=== PATIENT | female | born 1960 | race Caucasian/White ===

== ENCOUNTER → 2016-08-04 | Outpatient (CLI) | payer OTHER ==
--- NOTE | 2016-08-04 17:50 | DX ---
Chest, PA and lateral. History: Cough Findings: Heart size is within normal limits. Pulmonary vascularity is normal. The lungs are clear. No evidence of pleural effusion or pneumothorax. Minimal degenerative change is seen in the thoracic spine. Surgical clips upper abdomen. Impression: No evidence of acute cardiopulmonary abnormality.
== END ==
LOC: FIMAGING 11:30
PROVIDERS: ATTEND Family Medicine
DX: R05 Cough (principal); R13.10 Dysphagia, unspecified

== ENCOUNTER → 2016-09-01 | Outpatient (CLI) | payer OTHER | LOC: FIMAGING 09:16 | PROVIDERS: ATTEND Family Medicine | DX: K44.9 Diaphragmatic hernia without obstruction or gangrene (principal); K22.2 Esophageal obstruction; K21.9 Gastro-esophageal reflux disease without esophagitis; R13.10 Dysphagia, unspecified ==

== ENCOUNTER 2016-10-07 15:05 | Emergency (ER) | payer OTHER ==
[2016-10-07 15:41] VITALS: BP 126/62; PULSE 81; RESP 18; TEMP 97.9; O2SAT 96
--- NOTE | 2016-10-07 16:40 | UCPHY ---
H & P Patient Type: Established HPI/ROS: CHIEF COMPLAINT: Skin biopsy, possible infection HISTORY OF PRESENT ILLNESS: Patient had a skin biopsy done on left anterior chest near the shoulder on the of this month. It was for possible melanoma. Following day she noted some pain and redness around the area. No fever or chills. She said she felt ill yesterday but this resolved spontaneously. Minimal pain in the left shoulder. No radiating pain. No numbness or tingling. No bleeding. The wound has been covered with bacitracin and Band-Aid. Minimal in a pain with this at this time. No improvement with ibuprofen. No other associated complaints or modifying factors. REVIEW OF SYSTEMS: Ten systems reviewed and are negative unless otherwise noted in the HPI PERTINENT MEDICAL HISTORY: Previous melanoma EXAMINATION General Appearance: Alert, no distress Head: normocephalic, atraumatic Eyes: Pupils equal and round, no conjunctival pallor or injection ENT, Mouth: Mucous membranes moist Neck: Normal inspection Respiratory: No wheezing. No distress. Neurological: A&O, nonfocal, normal gait Skin: Warm and dry. No rash. Left anterior chest: There is a 1 cm oval shaped wound consistent with skin biopsy. There is minimal surrounding erythema. No purulence. No fluctuance. No induration. No surrounding cellulitis. Extremities: Nontender, no pedal edema Psychiatric: Mood and affect normal DIFFERENTIAL DIAGNOSES: Including but not limited to skin biopsy, secondary skin infection, erythema from biopsy MDM: 4:37 p.m. Recent skin biopsy on the left anterior chest near the shoulder. There is some very mild surrounding erythema of the wound margins. There is no cellulitic appearance. No abscess. She is well appearing with stable vital signs. I will place her on Keflex for prophylaxis empirically. She is to follow up with the surgeon on Sunday and her primary care physician. She is comfortable with this plan and discharged home stable condition. SUPERVISION: This patient was independently evaluated without direct examination by the attending physician. Case was discussed with attending physician. Smoking Status: Never smoked Constitutional: Initial Vital Signs Temperature (C) 97.9 F 10/07/16 15:38 Heart Rate 81 10/07/16 15:38 Respiratory Rate 18 10/07/16 15:38 Blood Pressure 126/62 H 10/07/16 15:38 O2 Sat (%) 96 10/07/16 15:38 O2 Delivery Mode Room Air Allergies/Adverse Reactions: erythromycin base [Erythromycin Base] Allergy (Intermediate, Verified 02/23/16 18:26) BLISTERS IN MOUTH levofloxacin [From Levaquin] Allergy (Intermediate, Verified 02/23/16 18:27) ITCHING / BLISTERS AT IV SITE Sulfa (Sulfonamide Antibiotics) Allergy (Intermediate, Verified 02/23/16 18:27) BLISTERS IN MOUTH AND THROAT Home Medications: Medication Instructions Recorded Cephalexin [Keflex (*)] 500 mg PO TID #30 cap 10/07/16 MDM/Departure - Depart Disposition: Home, Routine, Self-Care Clinical Impression: Skin infection, S/P skin biopsy Condition: Good Instructions: Cellulitis (ED) Additional Instructions: Keflex as prescribed. Follow up with primary care physician for further care. Return to the ER or Urgent Care for worsening symptoms. Prescriptions: Cephalexin [Keflex (*)] 500 mg PO TID #30 cap Referrals: Eusebia Medley MD [Primary Care Provider] - As per Instructions - PQRS PQRS Measurement: Not applicable
== END 2016-10-07 16:46 | disposition home or self-care (01) ==
LOC: CED 15:05
DX: L08.9 Local infection of the skin and subcutaneous tissue, unspecified (principal); Z85.820 Personal history of malignant melanoma of skin
CPT/HCPCS: 99214-PO; G0463-PO

== ENCOUNTER 2016-10-17 18:10 | Emergency (ER) | payer OTHER ==
[2016-10-17 18:15] VITALS: BP 133/78; RESP 18; TEMP 98; O2SAT 96
--- NOTE | 2016-10-17 18:29 | UCPHY ---
H & P Patient Type: Established Chief Complaint Nursing Narrative: c/o Cough/ URI x 1 wk HPI/ROS: HPI CHIEF COMPLAINT: Cough HISTORY OF PRESENT ILLNESS: This patient very pleasant 48-year-old female significant past medical history for esophageal tear, heart failure, staph infection, presents to urgent care with 4 days of progressively worsening bronchitic cough with no sputum production. No fever. Does have chills. No chest pain. She states she can't stop coughing over the past 3 days. Denies wheezing, fever, vomiting has had diarrhea. She has been recently on Keflex for skin biopsy infected site. Denies chest pain or significant shortness of breath. No dyspnea on exertion. No leg swelling. denies history of PE DVT Past Medical History: Esophageal tear, heart failure, staph infection Past Surgical History: No recent surgical history Social History: Denies daily use of drugs alcohol tobacco products Family History: Noncontributory ROS REVIEW OF SYSTEMS: A comprehensive 10 point review of systems is otherwise negative aside from elements mentioned in the history of present illness. Exam Constitutional triage nursing summary reviewed, vital signs reviewed, awake/ alert. Eyes normal conjunctivae and sclera, EOMI, PERRLA. HENT normal inspection, atraumatic, moist mucus membranes, no epistaxis, neck supple/ no meningismus, no raccoon eyes. Respiratory decreased breath sounds bilaterally, bronchitic sounding cough no respiratory distress, no wheezing. Cardiovascular rate normal, regular rhythm, no murmur, no edema, distal pulses normal. Gastrointestinal soft, non-tender, no rebound, no guarding, normal bowel sounds, no distension, no pulsatile mass. Genitourinary no CVA tenderness. Musculoskeletal no midline vertebral tenderness, full range of motion, no calf swelling, no tenderness of extremities, no meningismus, good pulses, neurovascularly intact. Skin pink, warm, & dry, no rash, skin atraumatic. Neurologic awake, alert and oriented x 3, AAOx3, moves all 4 extremities equally, motor intact, sensory intact, CN II-XII intact, normal cerebellar, normal vision, normal speech. Psychiatric normal mood/affect. Heme/Lymph/Immune no lymphadenopathy. Differential Diagnosis: includes but is not limited to in a particular order, upper respiratory tract infection, viral pneumonia, bacterial pneumonia, pneumothorax, bronchitis, doubt CHF Medical Decision Making: plan for this patient two view chest x-ray, DuoNeb breathing treatment. Cough medicine prednisone. Re-eval Re-evaluation: 190: Re-evaluation this time patient feeling much better after DuoNeb breathing treatment. Chest x-ray reviewed shows no acute focal pneumonia. Linear atelectasis seen. Patient clinically here bronchitis. No hypoxia no fever. Prescription given for guaifenesin, albuterol, prednisone, doxycycline. She is allergic to sulfa antibiotics, Levaquin, erythromycin. She understands to drink lots of fluids return to the urgent care or emergency room if there is any worsening symptoms. Source: Patient - Personal History Tetanus Vaccine Date: 2007 - Medical/Surgical History Hx Asthma: No Hx Chronic Respiratory Disease: No Hx Diabetes: No Hx Cardiac Disease: No Hx Renal Disease: No Hx Cirrhosis: No Hx Alcoholism: No Hx HIV/AIDS: No Hx Splenectomy or Spleen Trauma: No Other PMH: denies - Family History Significant Family History: No pertinent family hx - Social History Smoking Status: Never smoked Constitutional: Initial Vital Signs Temperature (C) 36.6 C 10/17/16 18:14 Heart Rate 74 10/17/16 18:14 Respiratory Rate 18 10/17/16 18:14 Blood Pressure 133/78 H 10/17/16 18:14 O2 Sat (%) 96 10/17/16 18:14 O2 Delivery Mode Room Air Allergies/Adverse Reactions: erythromycin base [Erythromycin Base] Allergy (Intermediate, Verified 02/23/16 18:26) BLISTERS IN MOUTH levofloxacin [From Levaquin] Allergy (Intermediate, Verified 02/23/16 18:27) ITCHING / BLISTERS AT IV SITE Sulfa (Sulfonamide Antibiotics) Allergy (Intermediate, Verified 02/23/16 18:27) BLISTERS IN MOUTH AND THROAT Home Medications: Medication Instructions Recorded Cephalexin [Keflex (*)] 500 mg PO TID #30 cap 10/07/16 Albuterol [Proventil Inhaler HFA 1 - 2 puffs IH Q4H #1 mdi 10/17/16 (*)] Hydrocodone/APAP 5/325 [Hammond 1 - 2 tab PO Q4H PRN #10 tab 10/17/16 5/325] predniSONE 60 mg PO DAILY #15 tab 10/17/16 Medical Decision Making - Diagnostics Imaging: Imaging Impressions Chest X-Ray 10/17/16 18:33 Impression: 1. Band of subsegmental atelectasis left base similar to the prior study. No active cardiopulmonary disease seen. - Data Points Medications Given: Discontinued Medications Albuterol/Ipratropium (Duoneb) 3 ml IH EDNOW ONE Stop: 10/17/16 18:34 Last Admin: 10/17/16 18:54 Dose: 3 ml Guaifenesin (Mucinex) 600 mg PO EDNOW ONE Stop: 10/17/16 18:37 Last Admin: 10/17/16 18:53 Dose: Not Given Prednisone (Prednisone) 60 mg PO EDNOW ONE Stop: 10/17/16 18:37 Last Admin: 10/17/16 18:55 Dose: 60 mg Departure - Departure Disposition: Home, Routine, Self-Care Clinical Impression: Cough, Bronchitis Condition: Good Instructions: Acute Bronchitis (ED), Cold Symptoms (ED), Acute Cough (ED) Additional Instructions: 1. Make sure to drink lots of fluids 2. return to the Urgent Care emergency review any worsening symptoms questions or concerns. Prescriptions: Albuterol [Proventil Inhaler HFA (*)] 1 - 2 puffs IH Q4H #1 mdi Hydrocodone/APAP 5/325 [Hammond 5/325] 1 - 2 tab PO Q4H PRN #10 tab PRN Reason: Pain, Moderate predniSONE 60 mg PO DAILY #15 tab - PQRS PQRS Measurement: n/a
[2016-10-17] MEDS ORDERED: IPRATROPIUM/ALBUTEROL 3 ML DEYVIAL IH ONE (18:33)
[2016-10-17] MEDS ORDERED: predniSONE 20 MG TAB PO ONE (18:36)
[2016-10-17] MEDS ORDERED: guaiFENesin 600 MG TAB.ER PO ONE (18:36)
[2016-10-17] MEDS ORDERED: guaiFENesin/CODEINE PHOS 10 ML UDCUP PO ONE (18:56)
[2016-10-17] MEDS ORDERED: DOXYCYCLINE 100 MG PREPACK#2 BTL TAKEHOME ONE (18:59)
[2016-10-17] MEDS ORDERED: DOXYCYCLINE HYCLATE 100 MG CAP/TAB PO ONE (19:00)
[2016-10-17 19:43] VITALS: PULSE 85
== END 2016-10-17 19:21 | disposition home or self-care (01) ==
LOC: CED 18:10
DX: J20.9 Acute bronchitis, unspecified (principal); Z86.79 Personal history of other diseases of the circulatory system
CPT/HCPCS: 71020-PO; 99214-PO; G0463-PO

== ENCOUNTER 2017-05-05 19:46 | Emergency (ER) | payer OTHER ==
[2017-05-05 19:58] VITALS: RESP 18
--- NOTE | 2017-05-05 21:48 | EDPHY ---
H & P Stated Complaint: Double vision for a week, worse today. Time Seen by Provider: 05/05/17 20:12 HPI/ROS: Chief Complaint: Double vision HPI: 57-year-old woman presenting with complaints of intermittent double vision for the last week or 2. Patient states that today the double vision has been persistent. She is described as double vision in the vertical plane with obvious appearing on top of 1 another. States when it has been intermittent you sleep has been worse in the evenings. Has had some mild left bilateral retro-orbital headache associated with this. Today's had double vision all day. No nausea or vomiting. No numbness or weakness. Is ambulating without difficulty. No dizziness. 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 She has also been having some tinnitus for the last several months. ROS: 10 point Review of Systems is negative except as noted in the HPI. PMH: GERD, Achilles tendon injury, dermoid tumors the spine 2011 in 2014 Social History: No smoking, occasional alcohol, no recreational drug use Family History: non-contributory Physical Exam: Gen: Awake, Alert, No Distress HEENT: Nose: no rhinorrhea Eyes: Pupils equal round reactive light accommodation, extraocular movements are intact. She has diplopia reported at 4 feet distance and beyond. Diplopia resolves with near vision. Diplopia also resolves with looking up and looking down. Is worse when she looks straight ahead. There is no horizontal diplopia Mouth: Moist mucosa Neck: Supple, no JVD Chest: nontender, lungs clear to auscultation Heart: S1, S2 normal, no murmur Abd: Soft, non-tender, no guarding Back: no CVA tenderness, no midline tenderness Ext: no edema, non-tender Skin: no rash Neuro: CN II-XII intact, Sensation grossly intact, Strength 5/5 in bilateral upper and lower extremities, normal finger-nose, normal heel-andrade - Personal History Current Tetanus/Diphtheria Vaccine: No Current Tetanus Diphtheria and Acellular Pertussis (TDAP): No Tetanus Vaccine Date: 2007 - Medical/Surgical History Hx Asthma: No Hx Chronic Respiratory Disease: No Hx Diabetes: No Hx Cardiac Disease: No Hx Renal Disease: No Hx Cirrhosis: No Hx Alcoholism: No Hx HIV/AIDS: No Hx Splenectomy or Spleen Trauma: No Other PMH: Hysterectomy, Appy, Cholecystectomy, Desmoid spinal tumors x 2, 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 - Social History Smoking Status: Never smoked Constitutional: Initial Vital Signs Temperature (C) 36.5 C 05/05/17 19:55 Heart Rate 71 05/05/17 19:55 Respiratory Rate 18 05/05/17 19:55 O2 Sat (%) 94 05/05/17 19:55 O2 Delivery Mode Room Air Allergies/Adverse Reactions: erythromycin base [Erythromycin Base] Allergy (Intermediate, Verified 05/05/17 19:58) BLISTERS IN MOUTH levofloxacin [From Levaquin] Allergy (Intermediate, Verified 05/05/17 19:58) ITCHING / BLISTERS AT IV SITE Sulfa (Sulfonamide Antibiotics) Allergy (Intermediate, Verified 05/05/17 19:58) BLISTERS IN MOUTH AND THROAT Home Medications: Medication Instructions Recorded NK [No Known Home Meds] 05/05/17 Medical Decision Making - Diagnostics Imaging Results: Imaging Impressions Brain MRI 05/05/17 20:40 Impression: 1. Rare subcortical and deep punctate white matter hyperintensities, which are nonspecific and may represent sequela of chronic microvascular ischemic gliosis , or old posttraumatic or postinflammatory changes. 2. There is no acute or subacute infarction. Findings were discussed with Parmjit Marcano MD at 22:15, on 05/05/2017. Imaging: Discussed imaging studies w/ speech and language specialist Radiologist ED Course/Re-evaluation: MRI of the brain does not reveal any cause for her diplopia. She has full extraocular movements of bilateral eyes. Visual acuity is intact. No evidence of acute stroke or MS plaques. Will refer her for outpatient with Neurology. She will return for any new neurologic symptoms or complaints. She is not having progressive weakness. No symptoms suggestive of Guillain-Rosharon. Will also refer her to Ophthalmology Departure - Departure Disposition: Home, Routine, Self-Care Clinical Impression: Diplopia Condition: Good Instructions: Diplopia (ED) Additional Instructions: Return to the emergency department for new numbness or weakness. Follow up with Neurology and Ophthalmology, call Sunday for next available appointment. Referrals: Eusebia Medley MD [Primary Care Provider] - As per Instructions Hemant Peterson MD [Medical Doctor] - As per Instructions Hollis Zafar MD [Medical Doctor] - As per Instructions
[2017-05-05 22:14] VITALS: BP 123/69; PULSE 64; TEMP 97.5; O2SAT 95
== END 2017-05-05 22:40 | disposition home or self-care (01) ==
DX: H53.2 Diplopia (principal)

== ENCOUNTER → 2017-05-10 | Outpatient (CLI) | payer OTHER ==
[~2017-05-10] MED LIST: IOPAMIDOL (ISOVUE 370) 100 ML BTL IV ONE
== END ==
LOC: FIMAGING 14:00
PROVIDERS: ATTEND Physician Assistant Medical
DX: H53.2 Diplopia (principal); R42 Dizziness and giddiness
CPT/HCPCS: Q9967

== ENCOUNTER → 2017-05-31 | Outpatient (CLI) | payer OTHER | LOC: FIMAGING 12:06 | PROVIDERS: ATTEND Family Medicine | DX: Z12.31 Encounter for screening mammogram for malignant neoplasm of breast (principal); Z80.3 Family history of malignant neoplasm of breast; Z98.82 Breast implant status | CPT/HCPCS: G0202 ==

== ENCOUNTER → 2018-04-17 | Outpatient (CLI) | payer OTHER ==
[~2018-04-17] MED LIST changes: +GADOBUTROL 10 ML VIAL IVP ONE; -IOPAMIDOL (ISOVUE 370) 100 ML BTL IV ONE
== END ==
LOC: FIMAGING 10:41
PROVIDERS: ATTEND Family Medicine
DX: M51.36 Other intervertebral disc degeneration, lumbar region (principal); D75.81 Myelofibrosis; G95.9 Disease of spinal cord, unspecified; R26.9 Unspecified abnormalities of gait and mobility; R32 Unspecified urinary incontinence
CPT/HCPCS: A9585

== ENCOUNTER → 2018-04-25 | Outpatient (CLI) | payer OTHER | LOC: FIMAGING 09:58 | PROVIDERS: ATTEND Physician Assistant Surgical | DX: M50.321 Other cervical disc degeneration at C4-C5 level (principal); M48.02 Spinal stenosis, cervical region ==

== ENCOUNTER 2018-04-27 05:14 | Observation (INO) | payer OTHER ==
[2018-04-27] MEDS ORDERED: NS 1,000 ML IV ONE (05:43)
--- NOTE | 2018-04-27 05:44 | EDPHY ---
H & P Stated Complaint: right side CP and SOB Time Seen by Provider: 04/27/18 05:44 HPI/ROS: HPI CHIEF COMPLAINT: Right-sided sharp stabbing pleuritic pain. HISTORY OF PRESENT ILLNESS: 58-year-old female, denies any significant medical history, presents emergency room with right sided pleuritic pain. Patient denies any trauma. Patient states this started around 10:00 p.m. Last night. It is now 6:00 a.m.. The pain is worse. Worse when she takes deep breath in. Rather persistent. Denies any abdominal pain. Pain is located right lower lateral lung. Pain is now located right lateral lung sharp stabbing pleuritic in nature. Past Medical History: History of coronary vaso spasm, poor circulation left leg. Past Surgical History: Tumor removed from spinal cord. Cholecystectomy. Social History: Denies drugs alcohol tobacco. Family History: Noncontributory ROS REVIEW OF SYSTEMS: 10 Systems were reviewed and negative with the exception of the elements mentioned in the history of present illness. Exam Constitutional nontoxic no acute distress triage nursing summary reviewed, vital signs reviewed, awake/alert. Eyes normal conjunctivae and sclera, EOMI, PERRLA. HENT normal inspection, atraumatic, moist mucus membranes, no epistaxis, neck supple/ no meningismus, no raccoon eyes. Respiratory clear to auscultation bilaterally, normal breath sounds, no respiratory distress, no wheezing. Cardiovascular rate normal, regular rhythm, no murmur, no edema, distal pulses normal. Gastrointestinal soft, non-tender, no rebound, no guarding, normal bowel sounds, no distension, no pulsatile mass. Genitourinary no CVA tenderness. Musculoskeletal no midline vertebral tenderness, full range of motion, no calf swelling, no tenderness of extremities, no meningismus, good pulses, neurovascularly intact. Skin pink, warm, & dry, no rash, skin atraumatic. Neurologic awake, alert and oriented x 3, AAOx3, moves all 4 extremities equally, motor intact, sensory intact, CN II-XII intact, normal cerebellar, normal vision, normal speech. Psychiatric normal mood/affect. Heme/Lymph/Immune no lymphadenopathy. Differential diagnosis includes but is not limited to: ACS, atypical chest pain , pneumothorax, pneumonia, pulmonary embolism, aortic dissection, congestive heart failure, tumor, musculoskeletal pain, esophageal pain, GERD, peptic ulcer disease, pancreatitis Medical Decision Making: Plan for this patient IV establishment IV fluid bolus , chest x-ray to rule out pneumothorax, EKG, troponin,electrolytes. Re- evaluate. Additionally patient will have a CT angiogram to the significant right-sided pleuritic pain. Re-evaluation: EKG interpretation by me on record in [facility] system. Impression normal sinus rhythm rate of 67 without any signs of acute ischemia no ST elevation or ST depression no T-wave abnormalities. No prolonged intervals. CT scan angiogram of the chest for right-sided severe pleuritic pain is negative for pulmonary embolism or pneumothorax or infiltrate. Called to me by Dr. Nevarez. Patient's lab work reviewed. Negative troponin. Patient's EKG is nonischemic. 0748: Patient re-evaluate this time she still having right-sided pleuritic pain. She received Dilaudid, Toradol. Given the abnormal thickening of the esophagus on the CT scan will give her GI cocktail to see if this improves her pain. She does not have a gallbladder. Plan for hospital admission for ongoing right-sided pleuritic pain. Unexplained at this time. Blood work reviewed. Negative troponin. CT scan reviewed. EKG shows no acute ischemia Plan for admission for right-sided severe pleuritic pain. Plan will be for admission for ongoing right-sided pleuritic pain. Updated the hospitalist service about her abnormal CT scan findings of the distal esophagus. This could be the cause of her pain. Plan for admission observation today. Accepted by hospitalist service Dr. Rowe for Dr. Gardner. Patient agrees on admission. Source: Patient - Personal History Current Tetanus/Diphtheria Vaccine: Yes Current Tetanus Diphtheria and Acellular Pertussis (TDAP): Yes Tetanus Vaccine Date: 2007 - Medical/Surgical History Hx Asthma: No Hx Chronic Respiratory Disease: No Hx Diabetes: No Hx Cardiac Disease: No Hx Renal Disease: No Hx Cirrhosis: No Hx Alcoholism: No Hx HIV/AIDS: No Hx Splenectomy or Spleen Trauma: No Other PMH: Hysterectomy, Appy, Cholecystectomy, Desmoid spinal tumors x 2, 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 - Social History Smoking Status: Never smoked Constitutional: Initial Vital Signs Temperature (C) 36.4 C 04/27/18 05:15 Heart Rate 71 04/27/18 05:15 Respiratory Rate 16 04/27/18 05:15 Blood Pressure 126/65 H 04/27/18 05:15 O2 Sat (%) 95 04/27/18 05:15 O2 Delivery Mode Room Air Allergies/Adverse Reactions: erythromycin base [Erythromycin Base] Allergy (Intermediate, Verified 04/27/18 05:19) BLISTERS IN MOUTH levofloxacin [From Levaquin] Allergy (Intermediate, Verified 04/27/18 05:19) ITCHING / BLISTERS AT IV SITE Sulfa (Sulfonamide Antibiotics) Allergy (Intermediate, Verified 04/27/18 05:19) BLISTERS IN MOUTH AND THROAT Home Medications: Medication Instructions Recorded Cholecalciferol Vit D3 [Vitamin D3 2,000 units PO DAILY 04/27/18 (*)] Herbals/Supplements -Info Only 1 ea PO DAILY 04/27/18 Methocarbamol [Robaxin 500 mg (*)] 1,000 mg PO QID PRN #20 tab 04/28/18 Pantoprazole Sodium [Protonix 40mg 40 mg PO BID #60 tab 04/28/18 (*)] Medical Decision Making - Data Points Laboratory Results: Laboratory Results 04/27/18 05:30 04/27/18 05:30 Medications Given: Discontinued Medications Acetaminophen (Tylenol) 650 mg PO Q4HRS PRN PRN Reason: Pain, Mild/Fever, Can Take PO Stop: 10/24/18 10:45 Last Admin: 04/28/18 09:50 Dose: 650 mg Al Hydroxide/Mg Hydroxide (Maalox Susp) 30 ml PO ONCE ONE Stop: 04/27/18 07:49 Last Admin: 04/27/18 07:53 Dose: 30 ml Cholecalciferol (Vitamin D) 2,000 units PO DAILY DREA Stop: 10/25/18 08:59 Last Admin: 04/28/18 09:47 Dose: 2,000 units Hydromorphone HCl (Dilaudid) 0.5 mg IVP EDNOW ONE Stop: 04/27/18 07:05 Last Admin: 04/27/18 07:11 Dose: 0.5 mg Hydromorphone HCl (Dilaudid) 0.5 mg IVP EDNOW ONE Stop: 04/27/18 07:49 Last Admin: 04/27/18 08:08 Dose: Not Given Hyoscyamine Sulfate (Levsin, Hyomax-Sl) 0.25 mg PO ONCE ONE Stop: 04/27/18 07:49 Last Admin: 04/27/18 07:52 Dose: 0.25 mg Sodium Chloride (Ns) 1,000 mls @ 0 mls/hr IV EDNOW ONE; Wide Open PRN Reason: Protocol Stop: 04/27/18 05:44 Last Admin: 04/27/18 05:52 Dose: 1,000 mls Ketorolac Tromethamine (Toradol) 15 mg IVP EDNOW ONE Stop: 04/27/18 07:05 Last Admin: 04/27/18 07:10 Dose: 15 mg Ketorolac Tromethamine (Toradol) 15 mg IVP Q6HRS DREA Stop: 05/02/18 11:59 Last Admin: 04/28/18 12:24 Dose: 15 mg Lidocaine (Lidocaine 2% Viscous) 15 ml PO ONCE ONE Stop: 04/27/18 07:49 Last Admin: 04/27/18 07:53 Dose: 15 ml Methocarbamol (Robaxin) 1,000 mg PO QID PRN PRN Reason: Pain, Moderate Stop: 10/25/18 05:59 Last Admin: 04/28/18 09:50 Dose: 1,000 mg Nitroglycerin (Nitrostat) 0.4 mg SL Q5M PRN PRN Reason: Chest Pain Stop: 10/24/18 21:34 Last Admin: 04/27/18 21:50 Dose: 0.4 mg Ondansetron HCl (Zofran Odt) 4 mg PO Q4HRS PRN PRN Reason: Nausea/Vomiting, Use 1st Stop: 10/24/18 10:45 Last Admin: 04/28/18 05:12 Dose: 4 mg Oxycodone HCl (Oxycodone Ir) 5 mg PO Q4HRS PRN PRN Reason: Pain, Severe Able to Take PO Stop: 05/08/18 11:32 Last Admin: 04/28/18 12:24 Dose: 5 mg Pantoprazole Sodium (Protonix) 40 mg PO BID DREA Stop: 10/24/18 10:59 Last Admin: 04/28/18 09:47 Dose: 40 mg Point of Care Test Results: Chemistry 04/27/18 05:44 POC Troponin I 0.00 ng/mL ng/mL (0.00-0.08) Departure - Departure Disposition: [facility] Acute Clinical Impression: Chest pain Qualifiers: Chest pain type: unspecified Qualified Code(s): R07.9 - Chest pain, unspecified Condition: Good
[2018-04-27] MEDS ORDERED: IOPAMIDOL (ISOVUE 370) 100 ML BTL IV ONE (05:51)
[2018-04-27 06:02] LABS: PLATELET COUNT 298 10^3/uL (150-400)
[2018-04-27] MEDS ORDERED: KETOROLAC 15 MG/1 ML SDV IVP ONE (07:04)
[2018-04-27] MEDS ORDERED: HYDROmorphONE/DILAUDID 2 MG/ML INJ IVP ONE ×2 (07:04→07:48)
[2018-04-27] MEDS ORDERED: LIDOCAINE 2% VISCOUS 15 ML UDCUP PO ONE (07:48)
[2018-04-27] MEDS ORDERED: HYOSCYAMINE SULFATE 0.125 MG TAB PO ONE (07:48)
[2018-04-27] MEDS ORDERED: MAG HYDROX/AL HYDROX/SIMETH 30 ML UDCUP PO ONE (07:48)
--- NOTE | 2018-04-27 08:21 | CPEKG ---
Test Reason : OPEN Blood Pressure : / mmHG Vent. Rate : 067 BPM Atrial Rate : 067 BPM P-R Int : 174 ms QRS Dur : 090 ms QT Int : 431 ms P-R-T Axes : 045 -08 021 degrees QTc Int : 455 ms Sinus rhythm Confirmed by Ananda Carroll ([id number] on 04/27/2018 8:19:44 AM Referred By: Confirmed By:Ananda Carroll
[2018-04-27] MEDS ORDERED: ONDANSETRON 4 MG/2 ML VIAL IVP PRN (10:46)
[2018-04-27] MEDS ORDERED: ONDANSETRON DISINTEGRATING 4 MG TAB PO PRN (10:46)
--- NOTE | 2018-04-27 11:34 | GHP ---
DATE OF ADMISSION: 04/27/2018 CHIEF COMPLAINT: Right-sided chest pain. HISTORY OF PRESENT ILLNESS: The patient is a 58-year-old who was admitted with right-sided chest tenzin n. She said her pain started last night at about 10 p.m. when she was about ready to go to bed. The pain started on her right side and was pleuritic in nature. It also hurt when she laid on her right side. She did not feel well yesterday, but no specific symptoms. No fevers, chills, nausea, vomiti ng. The pain woke her up from sleep several times, and this morning when she got up, she developed a slight cough, so she came in for further evaluation and treatment. She denies any significant short ness of breath, but she does have pain with breathing and feels that makes her slightly short of casisdy th. She has no significant radiation of the pain. The pain is noted on the right lower rib cage elvis t comes and goes and is reproducible with palpation. She is being admitted for further evaluation an d treatment. She has had no recent viral illnesses, fevers, chills, weight changes. She has a history of GE reflu x disease, but this does not feel like her typical heartburn. Her main issue is some leg pain and ed jeremy on the left side, for which she is undergoing an evaluation at this time. REVIEW OF SYSTEMS: A 10-point review of systems was done and is negative except as stated in HPI. PAST MEDICAL HISTORY: 1. GE reflux disease with hiatal hernia. 2. 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 3. Left leg pain, currently under evaluation. She has had a lumbar MRI, cervical MRI, and is curren tly waiting for evaluation with peripheral vascular studies. 4. History of malignant melanoma. PAST SURGICAL HISTORY: Is notable for status post cholecystectomy, appendectomy, hysterectomy, knee surgery, spinal fusion, tonsillectomy, and Achilles tendon repair on the left. ALLERGIES: Include erythromycin, Levaquin, and sulfa. CURRENT MEDICATIONS: Include a number of supplements. SOCIAL HISTORY: She is . 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 She denies any history of tobacco use or recre ational drug use. She does occasionally drink alcohol. FAMILY HISTORY: Notable for breast and ovarian cancer and colon cancer. PHYSICAL EXAMINATION: VITAL SIGNS: She is afebrile. Heart rate 70, blood pressure 124/67, respirat ions 16. She is 96% on room air. GENERAL: She is a very pleasant 58-year-old woman. She is in no obvious distress. She is alert and oriented. Speech is clear and fluent. HEENT: Pupils equal. Ex traocular movements intact. Mucous membranes moist. Oropharynx clear. NECK: Supple. No adenopath y. HEART: Regular rate and rhythm. No murmur, gallop, or rub. LUNGS: Clear bilaterally without w heeze or rhonchi. CHEST WALL: She does have some tenderness, pinpoint, on the right lateral lower r ibcage around T10-T11. This is reproducible with palpation. ABDOMEN: Soft. No masses. She does h ave some epigastric tenderness to deep palpation. Negative Loomis sign. EXTREMITIES: No clubbing, cyanosis, or edema noted. MUSCULOSKELETAL: No joint deformities. NEUROLOGIC: She moves all 4 extr emities. She is alert and oriented. Speech is fluent. SKIN: Intact. No rash. LABORATORY DATA: CBC is within normal limits. Chemistry and LFTs are all normal with a slightly manuel vated alkaline phosphatase at 137. IMAGING: Chest x-ray normal. Electrocardiogram, personally reviewed and interpreted, normal sinus r hythm. Chest and thoracic angiogram negative for PE. She did have some distal esophageal thickening . ASSESSMENT AND PLAN: A 58-year-old who presents with right-sided rib pain. Exquisitely tender on ex am. She also has a number of cervical and lumbar spine issues. Unclear etiology. She has already h ad a cholecystectomy which makes gallstones less likely. Electrocardiogram is unremarkable, and it s eems unlikely she has pericarditis with her symptoms. She has no evidence of a blood clot or rib fra cture; however, her ribs are particularly tender. I wonder if she has some spinal issues contributin g to this. 1. Right-sided chest and rib pain, unclear etiology. We will treat her with Toradol and analgesics as needed. Further evaluation with an MRI of her thoracic spine. Rule her out for cardiac evaluatio n with serial troponins. Check echocardiogram to rule out a pericardial effusion or any evidence of pericarditis, treat with a proton pump inhibitor for possible gastrointestinal symptoms, and consider further evaluation with Gastrointestinal if the above evaluation is negative. She may eventually ne ed an upper endoscopy to further evaluate her distal esophageal thickening. It may or may not need t o be done here in the hospital. 2. Left-sided leg pain, chronic. She has been evaluated for possible lumbar disease with an MRI rec ently. She has also had a cervical MRI which does show some cervical disk disease and is currently s [facility] for vascular workup. I will defer further evaluation of this issue to her outpat ient physician. 3. History of myelofibrotic tumor. Recent MRI did not show recurrence, but will check a thoracic sp ine MRI as well. 4. History of gastroesophageal reflux disease and hiatal hernia with abnormal esophagus on CT scan. She will need further evaluation with Gastrointestinal eventually. We will discuss possible esophag ogastroduodenoscopy as inpatient versus outpatient depending on the above evaluation. In the meantim e, we will continue proton pump inhibitor as above. 5. Deep vein thrombosis prophylaxis. Patient low risk and is under observation status. /[id number]/MODL
--- NOTE | 2018-04-27 12:09 | ASMTCMCOM ---
CM Note CM Note Notes: Pts case discussed in tx rounds. Pt is a 58 y/o female admitted for chest pain but otherwise generally healthy. Pt has complaints of left lower leg pain. Pts CT is normal. No therapies ordered at this time. Pt will most likely d/c independent when medically stable. CM available for changes. Plan: Independent Date Signed: 04/27/2018 12:08 PM Electronically Signed By:JUAQUIN Arellano
[2018-04-27] MEDS: PANTOPRAZOLE SODIUM 40 MG TAB PO SCH ×2 (12:18→20:35)
[2018-04-27] MEDS: KETOROLAC 15 MG/1 ML SDV IVP SCH ×3 (12:19→23:10)
[2018-04-27] MEDS: ACETAMINOPHEN 325 MG TAB PO PRN (20:34)
[2018-04-27] MEDS ORDERED: NITROGLYCERIN 0.4 MG BTL SL PRN (21:35)
[2018-04-27] MEDS: METHOCARBAMOL 500 MG TAB PO PRN (22:19)
[2018-04-28] MEDS: KETOROLAC 15 MG/1 ML SDV IVP SCH ×2 (05:03→12:24)
[2018-04-28] MEDS: METHOCARBAMOL 500 MG TAB PO PRN ×2 (05:04→09:50)
[2018-04-28] MEDS ORDERED: CHOLECALCIFEROL VIT D3 1,000 UNITS TAB PO SCH (09:00)
[2018-04-28] MEDS: PANTOPRAZOLE SODIUM 40 MG TAB PO SCH (09:47)
[2018-04-28] MEDS: ACETAMINOPHEN 325 MG TAB PO PRN (09:50)
[2018-04-28] MEDS ORDERED: oxyCODONE IR 5 MG TAB PO PRN (11:33)
--- NOTE | 2018-04-28 13:09 | ECHO ---
[email or web address] [address] [address] Main: [phone] Fax: Transthoracic Echocardiogram Name: ASHLEY STRONG MR#: [id number] Study Date: 04/28/2018 Study Time: 10:54 AM Date of : 1960 Age: 58 year(s) Height: 172.7 cm (68 in.) Weight: 83.92 kg (185 lb.) BSA: 1.98 m2 Gender: Female Examination: Indication: Pleurititc Chest Pain Image Quality: Contrast: Requested by: Nataly Gardner BP: 106 mmHg/56 mmHg Heart Rate: Rhythm: Indication: Pleurititc Chest Pain Procedure Staff Loan And Credit Manager: Torin Pruitt RDCS Reading Physician: Jose Ibrahim MD Requesting Provider: Measurements: Chambers Valvular Assessment AV/MV Valvular Assessment TV/PV Normal Normal Normal Name Value Range Name Value Range Name Value Range Ao Vita (MM): 2.1 cm (2.2 cm-3.7 AV Vmax: 1.83 m/s (1 m/s-1.7 PV Vmax: 1.18 m/s (0.6 m/s-0.9 cm) m/s) m/s) IVSd (2D): 0.7 cm (0.6 cm-1.1 AV maxP mmHg ( - ) PV PGmax: 6 mmHg ( - ) cm) LVOT Vmax: 1.10 m/s (0.7 m/s-1.1 LVDd (2D): 4.8 cm (3.9 cm-5.3 m/s) cm) MV E Vmax: 0.83 m/s ( - ) LVDs (2D): 3.0 cm (2.1 cm-4 MV A Vmax: 0.44 m/s ( - ) cm) MV E/A: 1.89 ( - ) LVPWd (2D): 0.9 cm ( - ) LVEF (2D): 66 (>=54 %) Continued Measurements: Chambers Valvular Assessment AV/MV Name Value Name Value LADs Lon.7 cm MV E' Septal: 0.06 m/s LA Area: 12.9 cm2 MV E/E' Septal: 14.30 LA Volume: 28 ml MV E/E' Lateral: 9.40 LA Volume Index: 14.1 ml/m2 Findings: Left Ventricle: Normal size left ventricle. No LV hypertrophy. Normal global systolic LV function. EF is 66 %. No regional wall motion abnormality. Right Ventricle: Patient: ASHLEY STRONG Study Date: 04/28/2018 Page 1 of 2 10:54 AM Normal size right ventricle. Normal RV function. Left Atrium: The left atrium is normal in size. Right Atrium: The right atrium is normal in size. Mitral Valve: The mitral valve is normal in appearance and function. There is no significant mitral valve regurgitation. No mitral stenosis is present. Aortic Valve: The aortic valve is normal in appearance and function. There is no aortic valve regurgitation. Tricuspid Valve: The tricuspid valve is normal in appearance and function. Pulmonic Valve: The pulmonic valve is normal in appearance and function. Aorta: The aorta is normal. Pericardium: No pericardial effusion. (No Signature Object) Patient: ASHLEY STRONG Study Date: 04/28/2018 Page 2 of 2 10:54 AM D:_[id number]
[2018-04-28 15:25] VITALS: BP 110/61
--- NOTE | 2018-04-28 15:29 | GCON ---
NEUROSURGERY CONSULTATION DATE OF CONSULTATION: 04/28/2018 The patient was seen and evaluated at approximately 2 p.m. on the general care floor at [facility]. HISTORY OF PRESENT ILLNESS: The patient is a 58-year-old woman, who was originally admitted for righ t-sided chest pain. She has a history of a lumbar fusion at L3-[address] Baird, my partner. She was admitted yesterday and said that the pain started the day before, when she was getting read y to go to bed. She says with a deep breath she gets radiating pain around the lower part of the alejandro st, around the lower ribs. She was also having this pain while lying on her back or lying on the rig ht side. When she is sitting up or standing, is does not bother her. She came in for further evalua tion and treatment. She has undergone some other workup, but had an MRI of the thoracic spine, which was read as showing a possible disk herniation that was presumed, based on the report, to be worse w hile the patient was standing up as opposed to lying down in the MRI scanner. She also has a left-si ded annular tear at T11-12. She has seen Dr. Baird recently in the clinic and had an MRI sca n of the lumbar spine on April 17, and of the cervical spine on April 25, both of which showed bev e mild degenerative disease, but were otherwise relatively unremarkable. She is apparently scheduled to undergo some ankle-brachial index studies for possible vascular left leg pain, in the near future . She does not have any other neurologic deficits and does not have any other major complaints. REVIEW OF SYSTEMS: A 10-point review of systems is negative other than described above in the HPI. PAST MEDICAL HISTORY: 1. GI reflux with hiatal hernia. 2. Mild fibrosis with dermoid tumor of the lumbar spine resected in 2011, 2012 and 2014. 3. Left leg pain with vascular studies pending. 4. History of malignant melanoma. FAMILY HISTORY: Notable for breast and ovarian cancer, but is otherwise noncontributory to this admi ssion. SOCIAL HISTORY: The patient is . She works in the home. She denies any tobacco, alcohol, or other drug use. ALLERGIES: 1. Erythromycin. 2. Levaquin. 3. Sulfa. HOME MEDICATIONS: The medications were reviewed within the electronic medical record, but I have not susie at this time. PHYSICAL EXAM: VITAL SIGNS: Currently she is afebrile with normal stable vital signs. NEUROLOGICAL: She is awake, alert, and oriented x3. Cranial nerves 2-12 are grossly normal. 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 In t he lower extremities, she has 5/5 strength of the hip flexors and extensors, knee flexors and extenso rs, and plantar and dorsiflexion. Her sensation is normal. Deep tendon reflexes are intact. She is not having any long tract signs. With palpation of the thoracic spine, she does have pain with palp ation over the paraspinous muscles on the right side, which does radiate to the chest and reproduces some of the symptoms that she was originally complaining of. IMAGING REVIEW: See HPI. ASSESSMENT/PLAN: The patient is a 58-year-old woman, who presents with right-sided chest pain. I larsen ve evaluated all of her MRI imaging and I certainly do not see anything on these images that would ex plain her pain at all. There is no sign of any nerve compression that would result in thoracic radic ulopathy. She does have paraspinous muscle tenderness there, and perhaps she has a muscular sprain o r strain that could be radiating this pain as palpation over this area did seem to reproduce the pain that she has. For this, I would recommend anti-inflammatories and physical therapy. She is already following with Dr. Baird in the clinic for her other spinal problems, and we will make sure that she will have some clinic followup in the near future, and I believe she already does to discuss the results of her cervical imaging. I do not think any further imaging or other neurosurgical inte rventions are necessary at this time. Thanks for the kind consult and please do not hesitate to cont act us in the future if we can be of any assistance. /[id number]/MODL
--- NOTE | 2018-04-28 15:52 | ASDISCHSUM ---
Discharge Information Plan Status:Home with No Needs Medically Cleared to Leave:04/28/2018 Discharge Date:04/28/2018 CM D/C Disposition:Home, Routine, Self-Care ADT D/C Disposition:Home, Routine, Self-Care Projected Discharge Date:04/28/2018 12:00 AM Transportation at D/C:Family Discharge Delay Reason: Follow-Up Date:04/28/2018 12:00 AM Discharge Slot:2 - 12:01 pm - 18:00 pm Final Diagnosis:R sided chest pain Placement Information Patient Contact Information Contact Name:MARKAVINCENT Relationship: Address:[address] City:[place] Alternate Phone: State/Zip Code:[place] [address] Email: Financial Information Financial Class:HMO and PPO Plans Primary Plan Desc:[facility] [employer] Primary Plan Number:[id number] Secondary Plan Desc: Secondary Plan Number: Assessment Information [facility] CM Progress Note CM Note CM Note Notes: Pts case discussed in tx rounds. Pt is a 58 y/o female admitted for chest pain but otherwise generally healthy. Pt has complaints of left lower leg pain. Pts CT is normal. No therapies ordered at this time. Pt will most likely d/c independent when medically stable. CM available for changes. Plan: Independent Date Signed: 04/27/2018 12:08 PM Electronically Signed By:JUAQUIN Arellano [facility] CM Progress Note CM Note CM Note Notes: Discharge ordered, patient to discharge home independently and follow up as recommended. CM available to support if any further needs arise. Date Signed: 04/28/2018 03:49 PM Electronically Signed By:Dayana Espinoza Intervention Information
--- NOTE | 2018-04-28 19:01 | GDS ---
DISCHARGE DIAGNOSES: 1. Chest pain. Suspect musculoskeletal versus gastroesophageal reflux disease related. 2. Chronic left-sided leg pain, currently undergoing outpatient workup. 3. History of myelofibrotic tumor. 4. History of gastroesophageal reflux disease. 5. Hiatal hernia. CONSULTANTS: Willis Griffin MD, neurosurgery. IMAGING STUDIES AND PROCEDURES: 1. CT pulmonary angiogram is negative for pulmonary embolism or aortic dissection, but shows moderat e-sized hiatal hernia with some nonspecific paraesophageal lymph nodes. 2. Thoracic spine MRI. Radiology read notes possible acute posterior annular tear involving T11-T12 , as well as a small central disk bulge and possible cord impingement at T6-T7. 3. Echocardiogram April 28, 2018, showed normal LV function with ejection fraction of 66%. No wal l motion abnormality and no evidence of pericardial effusion and no significant valve disease. HISTORY: For details, please see history and physical dated April 27, 2018. In brief, the patient is a 58-year-old female with a history of GERD, known hiatal hernia, and myelofibrosis with prior de rmoid tumor in the lumbar spine, status post resection, as well as chronic left leg pain, who present s to the emergency department with right-sided chest pain. She was admitted to the hospital for furt her management. HOSPITAL COURSE: Patient was admitted to the cardiac telemetry unit. She had no abnormal cardiac rh ythms. Her troponins were negative. She had a nonischemic EKG. An echocardiogram was negative for pericardial effusion. Thoracic spine MRI was performed with results as above. Neurosurgery consult was obtained and did not feel there was anything on her imaging that would explain her pain nor was t here any evidence of nerve compression that might result in thoracic radiculopathy. She did complain of paraspinal muscle spasms, which was responsive to Robaxin. I suspect her symptoms are likely mus culoskeletal in origin, although given her hiatal hernia, it is possible she is having esophageal spa sm related to GERD. For this reason, she will be discharged on PPI as well as Robaxin. She can follo w up with her primary neurosurgeon, Dr. Baird. She is also having extensive outpatient adwoa p for her chronic left lower extremity pain for which she will follow up with Dr. Eusebia Medley and Dr. Riki Aviles. She has no significant swelling or pain during this hospitalization. Thus, further inpatient workup is deferred. DISPOSITION: Patient is discharged home in stable condition. FOLLOWUP: 1. Dr. Eusebia Medley, primary care. 2. Dr. Kal Leos, gastroenterology, as she may warrant upper endoscopy to further evaluate her ab normal esophagus on CT. 3. Dr. Hollis Aviles, Cardiology. DISCHARGE MEDICATIONS: Please see [employer] completed outpatient medication list. New medications on discharge include: 1. Robaxin 1000 mg p.o. q.i.d. p.r.n. #20 no refills. 2. Protonix 40 mg p.o. twice daily #60 no refills. She will continue her vitamin D and other outpat ient medications as previously prescribed. /[id number]/MODL
--- NOTE | 2018-04-29 16:12 | CPEKG ---
Test Reason : OPEN Blood Pressure : / mmHG Vent. Rate : 066 BPM Atrial Rate : 066 BPM P-R Int : 169 ms QRS Dur : 091 ms QT Int : 421 ms P-R-T Axes : 050 -02 034 degrees QTc Int : 442 ms Sinus rhythm Low voltage, precordial leads Confirmed by Hayder Holden ([id number]) on 04/29/2018 4:12:12 PM Referred By: Confirmed By:Hayder Holden
== END 2018-04-28 16:45 | disposition home or self-care (01) ==
LOC: F2W 09:15
PROVIDERS: ADMIT Internal Medicine; ATTEND Internal Medicine
DX: R07.89 Other chest pain (principal); K44.9 Diaphragmatic hernia without obstruction or gangrene; R59.9 Enlarged lymph nodes, unspecified; E86.9 Volume depletion, unspecified; M51.04 Intervertebral disc disorders with myelopathy, thoracic region; Z86.79 Personal history of other diseases of the circulatory system; Z87.19 Personal history of other diseases of the digestive system
CPT/HCPCS: 71045; 71275; 72146; 93005; 93306; 96361; 96374; 96375; 96376; 97161; 99285; G0378; 84484-PO; J1170; J1885; Q9967

== ENCOUNTER → 2018-05-06 | Outpatient (CLI) | payer OTHER | LOC: FIMAGING 07:07 | PROVIDERS: ATTEND Internal Medicine Cardiovascular Disease | DX: M79.605 Pain in left leg (principal); R60.0 Localized edema ==

== ENCOUNTER → 2018-05-21 | Outpatient (CLI) | payer OTHER | LOC: FIMAGING 07:49 | PROVIDERS: ATTEND Radiology Diagnostic Radiology | DX: I83.892 Varicose veins of left lower extremity with other complications (principal) ==

== ENCOUNTER → 2018-06-19 | Outpatient (CLI) | payer OTHER ==
[~2018-06-19] MED LIST changes: -GADOBUTROL 10 ML VIAL IVP ONE; +IOPAMIDOL (ISOVUE 370) 100 ML BTL IV ONE
== END ==
LOC: FIMAGING 09:25
PROVIDERS: ATTEND Internal Medicine Cardiovascular Disease
DX: I83.92 Asymptomatic varicose veins of left lower extremity (principal); K44.9 Diaphragmatic hernia without obstruction or gangrene; I73.9 Peripheral vascular disease, unspecified; R07.9 Chest pain, unspecified
CPT/HCPCS: Q9967

== ENCOUNTER 2018-07-26 07:17 | Day surgery (SDC) | payer OTHER ==
[2018-07-26] MEDS ORDERED: fentaNYL 100 MCG/2 ML INJ IVP PRN (07:24)
[2018-07-26] MEDS ORDERED: MIDAZOLAM 2 MG/2 ML VIAL IVP PRN (07:24)
[2018-07-26] MEDS ORDERED: ceFAZolin 2 GM/DEXTROSE 100 ML IV ONE (07:24)
[2018-07-26] MEDS ORDERED: FLUMAZENIL 0.5 MG/5 ML MDV IVP PRN (07:24)
[2018-07-26] MEDS ORDERED: NS 1,000 ML IV ONE (07:24)
[2018-07-26] MEDS ORDERED: NALOXONE HCL 0.4 MG/ML INJ IVP PRN (07:24)
[2018-07-26] MEDS ORDERED: SODIUM TETRADECYL SULFATE 3% 2 ML VIAL IV ONE (08:18)
[2018-07-26] MEDS ORDERED: LIDO/EPI 1% **for epidural** 30 ML SDV ONE (08:18)
--- NOTE | 2018-07-26 09:06 | PDGENHP ---
History & Physical Chief Complaint: LLE pain and swelling History of Present Illness: ropey varicose veins Pertinent Past, Social, Family History: non smoker. Relevant Physical Exam: anterior thigh and knee varicose veins Cardiorespiratory Assessment: rrr, cta
--- NOTE | 2018-07-26 09:07 | PDPROPOC ---
Sedation Plan of Care Sedation Plan of Care: vital signs stable, mental status noted, patient educated of risks, benefits, alternatives, patient can tolerate sedation ASA Classification: ASA 1 Planned drugs: fentanyl, midazolam Mallampati Score: Class 2 Mallampati Reference Image: Patient passed 3-3-2 rule?: Yes
[2018-07-26] MEDS ORDERED: MIDAZOLAM 2 MG/2 ML VIAL ONE (10:34)
[2018-07-26] MEDS ORDERED: fentaNYL 100 MCG/2 ML INJ ONE (10:34)
[2018-07-26] MEDS ORDERED: LIDOCAINE 1% 300 MG/30 ML SDV ONE (10:39)
[2018-07-26] MEDS ORDERED: ONDANSETRON 4 MG/2 ML VIAL IVP PRN (10:43)
[2018-07-26] MEDS ORDERED: HYDROCODONE/APAP 5/325 TAB PO PRN (10:43)
[2018-07-26] MEDS ORDERED: ONDANSETRON DISINTEGRATING 4 MG TAB PO PRN (10:43)
[2018-07-26] MEDS ORDERED: IBUPROFEN 200 MG TAB PO ONE (10:43)
--- NOTE | 2018-07-26 10:44 | PDRADPN ---
Radiology Procedure Note Date of Procedure: 07/26/18 Radiologist: Linda Taylor Anesthesia: IV Sedation Pre-op Diagnosis: LLE varicose veins Post-op Diagnosis: same Indication: pain and swelling Procedure: laser ablation, phlebectomy, sclerotherapy Inf/Abcess present in the surg proc area at time of surgery?: No
[2018-07-26] MEDS ORDERED: NS 1,000 ML IV SCH (10:45)
[2018-07-26 14:07] VITALS: BP 103/53
== END 2018-07-26 14:00 | disposition home or self-care (01) ==
LOC: FIMAGING 07:17
PROVIDERS: ATTEND Radiology Diagnostic Radiology
PROC: 065Q3ZZ Destruction of Left Saphenous Vein, Percutaneous Approach (ICD-10-PCS; principal; 2018-07-26 10:58)
PROC: 06BY3ZZ Excision of Lower Vein, Percutaneous Approach (ICD-10-PCS; principal; 2018-07-26 10:58)
PROC: 3E033TZ Introduction of Destructive Agent into Peripheral Vein, Percutaneous Approach (ICD-10-PCS; principal; 2018-07-26 10:58)
DX: I83.812 Varicose veins of left lower extremity with pain (principal)
CPT/HCPCS: J0690; J2250; J2310; J3010

== ENCOUNTER → 2018-11-19 | Outpatient (CLI) | payer OTHER | LOC: FIMAGING 12:26 | PROVIDERS: ATTEND Family Medicine | DX: M19.041 Primary osteoarthritis, right hand (principal); M18.12 Unilateral primary osteoarthritis of first carpometacarpal joint, left hand; M79.661 Pain in right lower leg ==